=== PATIENT | female | born 1985 | race African-American/Black ===

== ENCOUNTER 2023-12-30 09:08 | Outpatient (AMB) | payer OTHER, SELFPAY ==
--- NOTE | 2023-12-30 09:13 | A.OFFPC_ITS ---
Vital Signs 12/30/23 09:16 12/30/23 10:02 Height 5 ft 4 in Weight 168 lb BMI 28.8 BP 124/84 Blood Pressure Location Rt brachial Position Sitting Pulse 108 H 78 Pulse Source Pulse Oximeter Auscultation Pulse Oximetry (%) 99 Oxygen Delivery Method Room Air Intake Visit Reasons: New pt- Requesting PE Intake Note: pt is here for New pt appt. Requests PE. Pap April 2022 in [place] Allergies No Known Allergies Allergy (Verified 12/30/23 09:39) Medication List - Last Reconciled 12/30/23 by AUREA Sanchez No Known Home Meds Tobacco use date assessed: 12/30/23 Dental Screening Dental Screen Date: 12/30/23 Did you have a dental visit in the last 12 months?: No Did you have a dental problem in the last 6 months where you did not have access to dental care?: No Was dental information given to patient?: No HPI HPI Comments History of Present Illness Details Patient is a 38-year-old female in today for a physical exam who I am meeting for the 1st time. She moved here from [place] does not have telecommunications sales representative, will refer. Patient is due for mammogram will order. Patient believes she is up-to-date with Tdap will send us information from her previous primary care provider. Will draw fasting labs. Patient has no significant past medical history. [facility] Surgical History (Updated 12/30/23 @ 09:24 by Gm Mcclain CMA) Previous section Social History Housing: Condominium Patient Tobacco Use Status: Never used Tobacco e-Cigarette/Vaping Use: Never Used service: No Current occupational status: unemployed Current occupational exposures/hazards: No Cognitive needs: No Hearing needs: No Vision needs: No Questionnaire PHQ-9 Over the last 2 weeks, how often have you been bothered by any of the following problems? 1. Little interest or pleasure in doing things: not at all 2. Feeling down, depressed, or hopeless: not at all 3. Trouble falling or staying asleep, or sleeping too much: not at all 4. Feeling tired or having little energy: not at all 5. Poor appetite or overeating: not at all 6. Feeling bad about yourself - or that you are a failure or have let yourself or your family down: not at all 7. Trouble concentrating on things, such as reading the newspaper or watching television: not at all 8. Moving or speaking so slowly that other people could have noticed. Or the opposite - being so fidgety or restless that you have been moving around a lot more than usual: not at all 9. Thoughts that you would be better off or of hurting yourself in some way: not at all Total score: 0 Depression Screening Interpretation: Negative Depression Screening Done: Yes 54081 - PHQ-9 Billing: Yes Source: Developed by Drs. Chago Hopson, Sol Manzanares, Sharath Shane and colleagues, with an educational renee from [employer]. Thrive Questionnaire Date Thrive assessed: 12/30/23 I am a: Patient What is your living situation today?: I have a steady place to live Within the past 12 months, did the food you bought not last and you didn't have the money to get more?: Never true Within the past 12 months, did you worry whether your food would run out before you got money to buy more?: Never true Do you have trouble paying for medicines?: No Do you have trouble getting transportation to medical appointments?: No Do you have trouble paying your heating and electricity bill?: No Do you have trouble taking care of your child, family member or friend?: No Do you have trouble with day-to-day activities such as bathing, preparing meals, shopping, managing finances, etc.?: No Are you currently unemployed and looking for a job?: No Are you interested in more education?: No Please select the resources that you would like help with: None Currently or been in a relationship where the following occur: no concerns repo rted THRIVE Score: 0 AUDIT C Alcohol Use Questionnaire (AUDIT-C) 1. How often do you have a drink containing alcohol?: Never Total Score: 0 FANNIE-7 AMB Questionnaire FANNIE-7 Date FANNIE - 7 assessed: 12/30/23 Feeling nervous, anxious, or on edge: 0 = Not at all Not being able to stop or control worryin = Not at all Worrying too much about different things: 0 = Not at all Trouble relaxin = Not at all Being so restless that it is hard to sit still: 0 = Not at all Becoming easily annoyed or irritable: 0 = Not at all Feeling afraid as if something awful might happen: 0 = Not at all Total FANNIE-7 score (0-4 normal; 5-9 mild; 10-14 moderate; 15-21 severe): 0 Source: Developed by Drs. Chago Hopson, Sol Manzanares, Sharath Shane and colleagues, with an educational renee from [employer]. FANNIE-7 Assessment Billing FANNIE-7 Assessment Tool: FANNIE-7 Assessment 64991 Review of Systems Const All systems reviewed & are unremarkable except as noted in HPI and below Physical exam (Primary Care) Vital Signs: Last Vital Signs Pulse 108 H 12/30/23 09:16 BP 124/84 12/30/23 09:16 Pulse Ox 99 12/30/23 09:16 Oxygen Delivery Method Room Air 12/30/23 09:16 Care Plan Goal for BP management: Patient blood pressure is controlled. During physical exam patient's pulse 78 peep per minute. BMI result Body Mass Index 28.8 Tobacco/Smoking Status: Tobacco use Status Tobacco use date assessed 12/30/23 12/30/23 09:26 Patient Tobacco Use Status Never used Tobacco 12/30/23 09:26 e-Cigarette/Vaping Use Never Used 12/30/23 09:26 PHQ-9: PHQ-9 Score PHQ-9: Total score 0 12/30/23 09:26 Depression Screening Interpretation: Negative Thrive Assessment: Date of Thrive Assessment Date Thrive assessed 12/30/23 12/30/23 09:26 Currently or been in a relationship where the following occur: no concerns reported Advance Care Planning discussion: Completed/Scanned Date of discussion: 12/30/23 Who was present: partner Forms completed: Health Care Proxy Time spent: 16-45 minutes Actual minutes spent: 16 Const Other: Appearance: Alert.? Oriented X3.? No acute distress.? Head: Normocephalic, atraumatic, no step-offs or deformities Eyes: Pupils equal, round and reactive to light.? ENT: Pharynx normal.?TM intact and pearly nascimento. Neck: Normal inspection.? Neck supple.? CVS: Normal heart rate and rhythm.? Pulses normal.? Respiratory: No respiratory distress.? Breath sounds normal.? Abdomen: Soft and nontender.? Skin: Skin warm and dry.? Normal skin color.? Normal skin turgor.? Extremities: No lower extremity edema. 5/5 strength to bilateral upper and lower extremities Back: No midline tenderness, no C-spine tenderness, full range of motion, no CVA tenderness bilaterally Neuro: Oriented X 3.? No motor deficit.? No sensory deficit. CN 2-12 intact Assessment and Plan Assessment & Plan (1) Physical exam: Comment: Patient is a 38-year-old female in today for a physical exam who I am meeting for the 1st time. She moved here from [place] does not have telecommunications sales representative, will refer. Patient is due for mammogram will order. Patient believes she is up-to-date with Tdap will send us information from her previous primary care provider. Will draw fasting labs. Patient has no significant past medical history. Code(s): Z00.00 - Encounter for general adult medical examination without abnormal findings Plan: draw labs Orders: Orders UA CC w/rflx Micro + Cult Today Z13.89 - Encounter for screening for other disorder Vitamin D 25-OH (D2 and D3) Today Z13.21 - Encounter for screening for nutritional disorder Vitamin B6 Today Z13.21 - Encounter for screening for nutritional disorder Vitamin B12 Today Z13.21 - Encounter for screening for nutritional disorder TSH reflex Free T4 Today Z13.29 - Encounter for screening for other suspected endocrine disorder Lipid Panel Today Z13.220 - Encounter for screening for lipoid disorders Complete Blood Count Auto Diff Today Z13.0 - Encounter for screening for diseases of the blood and blood-forming organs and certain disorders involving the immune mechanism Comprehensive Met. Panel Today Z91.89 - Other specified personal risk factors, not elsewhere classified MM tomosynthesis screening BI Today Z12.31 - Encounter for screening mammogram for malignant neoplasm of breast Referrals [facility] REPRESENTATIVE Referral Z12.4 - Encounter for screening for malignant neoplasm of cervix Coding Level of Care Code New Pt Prev Care 40-64y(15348) Diagnoses Physical exam Z00.00 Additional Codes FANNIE-7 Assessment Billing - FANNIE-7 Assessment Tool: FANNIE-7 Assessment 70905 ([id number]) Vital Signs *Quality* - Advance Care Planning discussion: Completed/Scanned ([id number]) Vital Signs *Quality* - Time spent: 16-45 minutes ([id number]) Time Spent (min) 26
[2023-12-30 09:16] VITALS: BP 124/84; PULSE 108; O2SAT 99; BMI 28.8
[2023-12-30 10:02] VITALS: PULSE 78
== END 2023-12-30 09:52 | disposition home or self-care (01) ==
PROVIDERS: Visit Provider Nurse Practitioner Primary Care
DX: Z00.00 Encounter for general adult medical examination without abnormal findings (principal)
CPT/HCPCS: 1123F; 99386; 99497

== ENCOUNTER 2023-12-30 09:56 | Outpatient (REF) | payer OTHER, SELFPAY ==
[2023-12-30 13:12] LABS: MANUAL DIFF FLAG NO
[2023-12-30 13:15] LABS: Appearance Urine Clear; Color Urine Yellow; Glucose Urine UA Negative (Negative); Leukocyte Esterase Urine Negative (Negative); Nitrite Urine Negative (Negative); PH 5.5 (5.0-9.0); Urine Blood Negative (Negative); Urine Ketones Negative (Negative); Urine Protein Negative (Neg-Trace)
[2023-12-30 13:27] LABS: Basophils Percent Auto 0.7 % (0-2); Eosinophils Absolute Auto 0.1 X10*3/uL (0.0-0.4); Hematocrit 37.4 % (37.0-47.0); Hemoglobin 12.5 g/dl (12.0-16.0); Imm Gran Abs Auto 0.01 X10*3/uL (0.00-0.03); Imm Gran Pct Auto 0.2 % (0.0-0.4); Lymphocytes Absolute Auto 2.2 X10*3/uL (1.2-4.9); Lymphocytes Percent Auto 48.9 % (20-40); Mean Corpuscular HGB Conc 33.4 g/dl (31.0-35.0); Mean Corpuscular Hemoglobin 31.1 pg (27.0-33.0); Mean Platelet Volume 12.4 fL (9.4-12.3); Monocytes Absolute Auto 0.4 X10*3/uL (0.1-1.2); Monocytes Percent Auto 8.9 % (2-11); Neutrophils Absolute Auto 1.7 x10*3/uL (2.0-8.3); Neutrophils Percent Auto 39.3 % (45-73); Platelet Count 250 X10*3/uL (160-400); Red Blood Count 4.02 X10*6/uL (4.20-5.50); Red Cell Distribution Width 13.2 % (11.0-16.0); White Blood Count 4.4 X10*3/uL (4.8-10.8)
[2023-12-30 13:56] LABS: Alanine Aminotransferase 10 U/L (0-31); Albumin Level 4.2 g/dL (3.5-5.0); Alkaline Phosphatase 41 U/L (39-117); Anion Gap 13 (12-20); Aspartate Amino Transferase 15 U/L (5-31); Bilirubin Total 0.3 mg/dL (0.0-1.0); Blood Urea Nitrogen 12 mg/dL (9-16); Calcium 9.5 mg/dL (8.4-10.2); Carbon Dioxide 28 mmol/L (22-29); Chloride 106 mmol/L (96-108); Cholesterol 237 mg/dL (<200); Estimated Glomerular Filt Rate > 60; Glucose Random 90 mg/dL (60-115); HDL Cholesterol 46 mg/dL (>40); LDL Cholesterol Calculated 166 mg/dL (<100); Sodium 143 mmol/L (135-145); Total Protein 7.4 g/dL (6.5-8.0); Triglycerides 128 mg/dL (<150)
[2023-12-30 14:06] LABS: Vitamin B12 556 pg/mL (200-900)
[2023-12-30 14:14] LABS: TSH reflex Free T4 2.72 uIU/mL (0.32-4.0)
[2024-01-03 17:49] LABS: Vitamin B6 10.3 ng/mL (2.1-21.7)
[2024-01-05 14:28] LABS: Vitamin D 25-OH, D2 <4 ng/mL; Vitamin D 25-OH, D3 12 ng/mL; Vitamin D 25-OH, Total 12 ng/mL (30-100)
== END 2023-12-30 09:57 | disposition home or self-care (01) ==
LOC: HO.HMGCLDS 09:56
PROVIDERS: PCP Nurse Practitioner Primary Care; Visit Provider Nurse Practitioner Primary Care
DX: Z13.0 Encounter for screening for diseases of the blood and blood-forming organs and certain disorders involving the immune mechanism (principal); Z13.89 Encounter for screening for other disorder; Z13.21 Encounter for screening for nutritional disorder; Z13.29 Encounter for screening for other suspected endocrine disorder; Z13.220 Encounter for screening for lipoid disorders; Z91.89 Other specified personal risk factors, not elsewhere classified
CPT/HCPCS: 36415; 80053; 80061; 81003; 82306; 82607; 84207; 84443; 85025

== ENCOUNTER 2024-01-07 11:34 | Outpatient (REF) | payer OTHER, SELFPAY ==
--- NOTE | ~2024-01-07 | MM_ITS ---
EXAMINATION: MM SCREENING DIGITAL BREAST TOMOSYNTHESIS, BILATERAL CLINICAL INFORMATION: Screening. Asymptomatic. COMPARISON: Mammography: This is a baseline mammogram. TECHNIQUE: Digital breast tomosynthesis is performed in both the craniocaudal and mediolateral oblique views along with computer-aided detection (CAD). Synthesized 2D images are generated from the tomosynthesis. FINDINGS: There are scattered areas of fibroglandular density (ACR BI-RADS breast composition Category b). There are no significant masses, abnormal calcifications, or other abnormalities. MM/MM tomosynthesis screening BI IMPRESSION: No mammographic evidence of malignancy. ASSESSMENT: BI-RADS BI-RADS 1 - Negative RECOMMENDATION: Routine annual mammography screening. 1 year F/U This examination should not preclude the clinical evaluation of a suspicious palpable abnormality. This patient's information was entered into a reminder system with a target due date for their next mammogram.
== END 2024-01-07 11:35 | disposition home or self-care (01) ==
LOC: HO.MAMMO 11:34
PROVIDERS: PCP Nurse Practitioner Primary Care; Visit Provider Nurse Practitioner Primary Care
DX: Z12.31 Encounter for screening mammogram for malignant neoplasm of breast (principal)
CPT/HCPCS: 77063; 77067

== ENCOUNTER → 2024-01-07 11:45 | Outpatient (BNV) | payer OTHER, SELFPAY | PROVIDERS: PCP Nurse Practitioner Primary Care; Visit Provider Radiology Diagnostic Radiology | DX: Z12.31 Encounter for screening mammogram for malignant neoplasm of breast (principal) | CPT/HCPCS: 77063; 77067 ==

== ENCOUNTER 2024-01-16 10:29 | Outpatient (AMB) | payer OTHER, SELFPAY ==
--- NOTE | 2024-01-16 10:31 | A.OFFPC_ITS ---
Vital Signs 01/16/24 10:32 Height 5 ft 4 in Weight 168 lb BMI 28.8 BP 120/82 Blood Pressure Location Lt brachial Position Sitting Pulse 89 Pulse Source Pulse Oximeter Pulse Oximetry (%) 98 Oxygen Delivery Method Room Air Intake Visit Reasons: Weak Intake Note: pt is here for weakness Allergies No Known Allergies Allergy (Verified 01/16/24 10:56) Medication List - Last Reconciled 01/16/24 by AUREA Sanchez cholecalciferol (vitamin D3) 50 mcg PO DAILY Tobacco use date assessed: 12/30/23 Dental Screening Dental Screen Date: 12/30/23 HPI HPI Comments History of Present Illness Details Patient is a 38-year-old female in today for follow-up with lab re carleen. Patient was found to have elevated levels of cholesterol, as well as vitamin D3 deficiency. Patient will be started on vitamin D3 2000 units per day and will have the values redrawn. She will also improve her diet and exercise will draw lipid panel in 3 months. Patient is up-to-date with mammogram, she is due for OBGYN, referral is out. [facility] Surgical History (Updated 12/30/23 @ 09:24 by Gm Mcclain [facility]) Previous section Social History Housing: Condominium Patient Tobacco Use Status: Never used Tobacco e-Cigarette/Vaping Use: Never Used service: No Current occupational status: unemployed Current occupational exposures/hazards: No Cognitive needs: No Hearing needs: No Vision needs: No Questionnaire Thrive Questionnaire Date Thrive assessed: 12/30/23 FANNIE-7 AMB Questionnaire FANNIE-7 Date FANNIE - 7 assessed: 12/30/23 Source: Developed by Drs. Chago Hopson, Sol Manzanares, Sharath Shane and colleagues, with an educational renee from [employer]. Review of Systems Const All systems reviewed & are unremarkable except as noted in HPI and below Physical exam (Primary Care) Vital Signs: Last Vital Signs Pulse 89 01/16/24 10:32 BP 120/82 01/16/24 10:32 Pulse Ox 98 01/16/24 10:32 Oxygen Delivery Method Room Air 01/16/24 10:32 BMI result Body Mass Index 28.8 Tobacco/Smoking Status: Tobacco use Status Tobacco use date assessed 12/30/23 01/16/24 10:35 Patient Tobacco Use Status Never used Tobacco 01/16/24 10:35 e-Cigarette/Vaping Use Never Used 01/16/24 10:35 Thrive Assessment: Date of Thrive Assessment Date Thrive assessed 12/30/23 01/16/24 10:35 Const Other: Appearance: Alert.? Oriented X3.? No acute distress.? Head: Normocephalic, atraumatic, no step-offs or deformities Eyes: Pupils equal, round and reactive to light.? Neck: Normal inspection.? Neck supple.? CVS: Normal heart rate and rhythm.? Pulses normal.? Respiratory: No respiratory distress.? Breath sounds normal.? Neuro: Oriented X 3.? No motor deficit.? No sensory deficit. CN 2-12 intact Results Reviewed Results Reviewed: Triglyceride 128 <150 mg/dL Desirable Triglyceride: less than 150 mg/dL Borderline High Triglyceride 150-199 mg/dL High Triglyceride: 200-499 mg/dL Very High Triglyceride: greater than or equal to 5OO mg/dL Cholesterol 237 H <200 mg/dL Desirable Cholesterol: less than 200 mg/dL Borderline High Cholesterol: 200-239 mg/dL High Cholesterol: greater than 239 mg/dL LDL Calculated 166 H <100 mg/dL Desirable LDL: less than 100 mg/dL Near Optimal/Above Optimal LDL: 110-129 mg/dL Borderline High LDL: 130-159 mg/dL High LDL: 160-189 mg/dL Very High LDL: greater than or equal to 190 mg/dL HDL 46 >40 mg/dL Desirable HDL: greater than 40 mg/dL Note: This HDL assay may give artificially low results in patients with liver disease. Alk Phos 41 39-117 U/L TSH 2.72 0.32-4.0 uIU/mL Assessment and Plan Assessment & Plan (1) Vitamin D deficiency: Comment: patient will start vitamin D3 2000 units per day for the next 3 months will redraw. Code(s): E55.9 - Vitamin D deficiency, unspecified (2) Hyperlipidemia: Comment: Velez patient will try to bring this number back to normal with improved diet and exercise. Will redrawn 3 months Code(s): E78.5 - Hyperlipidemia, unspecified Qualifiers: Hyperlipidemia type: unspecified Qualified Code(s): E78.5 - Hyperlipidemia, unspecified Orders: Orders Vitamin D 25-OH (D2 and D3) 3 Months Z13.21 - Encounter for screening for nutritional disorder Lipid Panel 3 Months Z13.220 - Encounter for screening for lipoid disorders Medications: New cholecalciferol (vitamin D3) 50 mcg PO DAILY 90 caps 0RF Coding Level of Care Code Est Pt Level 3 (91177) Diagnoses Vitamin D deficiency E55.9 Hyperlipidemia, unspecified hyperlipidemia type E78.5 Hyperlipidemia type: unspecified Time Spent (min) 21
[2024-01-16 10:32] VITALS: BP 120/82; PULSE 89; O2SAT 98; BMI 28.8
== END 2024-01-16 11:00 | disposition home or self-care (01) ==
PROVIDERS: PCP Nurse Practitioner Primary Care; Visit Provider Nurse Practitioner Primary Care
DX: E55.9 Vitamin D deficiency, unspecified (principal); E78.5 Hyperlipidemia, unspecified
CPT/HCPCS: 99213

== ENCOUNTER 2024-03-30 11:20 | Outpatient (AMB) | payer OTHER, SELFPAY ==
--- NOTE | 2024-03-30 11:45 | A.OFFVIS_ITS ---
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 She is not having any radial drill press operator concerns she believes she had her last Pap smear in 2021 and she believes she was told by her doctor that her next 1 would need to be 5 years from then. She does not have the records with her. Now that she is here she is open to having another Pap smear and any testing necessary. She uses fertility awareness for fertility control she counts the days when she is fertile before and after he period. And avoids sex when she is fertile. Her only concern is she gets very itchy after she shaves in her pubic area and she had a cream that was given to her by her doctor in [place] but she does not know the name of it but it did help. She would love some more that cream. She moved here last year she lives for 10 years in [place] she has from [place] she has lots of family members in [place] her 12-year-old likes it here but her 6-year-old [facility] she is not working currently because there was so much to just living in a new place and taking care of the children. Her is in the and sometimes he gets deployed. COUNT INCLUDES THE [facility] Surgical History Previous section Social History Housing: Condominium Patient Tobacco Use Status: Never used Tobacco e-Cigarette/Vaping Use: Never Used service: No Current occupational status: unemployed Current occupational exposures/hazards: No Cognitive needs: No Hearing needs: No Vision needs: No Female Reproductive History Menstrual Age of Menarche: 13 Duration of menses: 3-5 days Date of last menstrual period: 02/26/24 control method: none Total pregnancies: 2 Full term: 2 Date of last pap smear: 04/25/22 (negative,per patient) History of abnormal pap smear: No Date of Mammogram: 01/07/24 (negative) Physical Exam Vital Signs: Last Vital Signs BP 136/70 03/30/24 11:47 BMI result Body Mass Index 29.0 Const General: healthy appearing, comfortable, no acute distress, well developed and alert Nutritional Appearance: average body habitus Orientation/consciousness: patient oriented x3 Limitations: no limitations HEENT Head: Yes normocephalic Neck Neck: Yes normal visual inspection Chest Chest palpation & inspection: normal inspection of the chest Breast/axilla inspection: normal inspection of the breasts and normal inspection of the axillae Breast/axilla palpation: normal palpation of the breasts and normal palpation of the axillae Resp Effort & Inspection: normal respiratory effort GI Inspection: Yes normal to inspection, No Abdominal wall edema and No distended Palpation (GI): Soft to palpation and nontender Other: External exam within normal limits no redness rash or lesions or abnormal discharge noted. Patient does shave.. Vagina is pink and moist cervix is pink multiparous healthy scant white luteal phase discharge noted. Cervix is long close thick mobile nontender uterus midposition mobile nontender good tone with Kegel. General: Yes bladder normal to palpation External Female Exam: normal external appearance and normal appearance of the urethra Speculum Exam - Vagina: normal appearance of the vagina, normal palpation and normal vaginal discharge Speculum Exam - Cervix: normal appearance of the cervix, normal palpation and nontender Bimanual exam- vagina & uterus: normal bimanual exam, normal palpation, uterine size normal, bladder normal to palpation, consistency normal, normal palpation, uterine mobility normal, uterine shape normal, No Cervical tenderness present, non-tender and no cervical motion tenderness Bimanual Exam- Adnexa, other: normal adnexae, no masses, normal and No adnexal tenderness Neuro General: patient oriented x3 Assessment & Plan Assessment & Plan (1) Well woman exam with routine gynecological exam: Code(s): Z01.419 - Encounter for gynecological examination (general) (routine) without abnormal findings Category: Medical (2) Cervical cancer screening: Comment: Cites no history of abnormals. Pap smear done as no records available. Code(s): Z12.4 - Encounter for screening for malignant neoplasm of cervix Category: Medical (3) Encounter for screening examination for sexually transmitted disease: Code(s): Z11.3 - Encounter for screening for infections with a predominantly sexual mode of transmission Category: Medical (4) Breast cancer screening: Comment: Patient says she just had her mammogram. Code(s): Z12.39 - Encounter for other screening for malignant neoplasm of breast Category: Medical (5) Uses fertility awareness method as primary control method: Code(s): Z78.9 - Other specified health status Category: Social Hx (6) Vaginal itching: Comment: Only when she shaves but she intends to shave, Rx for Monistat 7 provided for symptom relief. Code(s): N89.8 - Other specified noninflammatory disorders of vagina Category: Medical Plan -----Discussed in this visit the following: healthy balanced diet, regular and consistent exercise, getting recommended health screens, doing the best she can for her particular health concerns, kegel exercises, pap smear screening and followup recommendations, mammography screening and SBE, normal changes in cycles in her life stage--- . Prescription sent for Monistat 7 to as it may provide some soothing relief even though I do not see evidence of in yeast infection. It certainly will not harm her to use it. And there would be few precautions with that versus and topical steroid. If she finds the prescription that was given to her in [place] she may want to bring the 2 to her primary care provider and see if he may be able to provide a refill Discussed the challenges of relocating periodically with the life, and dealing with deployments etc., and distance from family and the challenges that that can present raising children. RTC 1 year. Medications: New miconazole nitrate 2% (Miconazole-7) Use when needed for suspected yeast infection/ vaginal itching 1 appful vaginal BEDTIME 7 days 45 grams 1RF Coding Level of Care Code New Pt Prev Care 40-64y(91758) Diagnoses Well woman exam with routine gynecological exam Z01.419 Cervical cancer screening Z12.4 Encounter for screening examination for sexually transmitted disease Z11.3 Breast cancer screening Z12.39 Uses fertility awareness method as primary control method Z78.9 Vaginal itching N89.8
[2024-03-30 11:47] VITALS: BP 136/70; BMI 29.0
== END 2024-03-30 12:35 | disposition home or self-care (01) ==
PROVIDERS: PCP Nurse Practitioner Primary Care; Visit Provider Advanced Practice Midwife
DX: Z01.419 Encounter for gynecological examination (general) (routine) without abnormal findings (principal); Z12.4 Encounter for screening for malignant neoplasm of cervix; Z11.3 Encounter for screening for infections with a predominantly sexual mode of transmission; Z12.39 Encounter for other screening for malignant neoplasm of breast; Z78.9 Other specified health status; N89.8 Other specified noninflammatory disorders of vagina
CPT/HCPCS: 99386

== ENCOUNTER 2024-03-30 11:20 | Outpatient (REF) | payer OTHER, SELFPAY ==
[2024-03-31 12:27] LABS: CT PCR NOT DETECTED (Not Detect.); NG PCR NOT DETECTED (Not Detect.)
[2024-03-31 13:09] LABS: Bacterial Vaginosis PCR NEGATIVE (Negative); Candida Group PCR NOT DETECTED (Not Detect); Candida glab krusei PCR NOT DETECTED (Not Detect); Trichomonas vaginalis PCR NOT DETECTED (Not Detect)
[2024-04-02 07:37] LABS: HPV mRNA E6/E7 Not Detected (Not Detected)
== END 2024-03-30 11:21 | disposition home or self-care (01) ==
LOC: HO.LAB 11:20
PROVIDERS: PCP Nurse Practitioner Primary Care; Visit Provider Advanced Practice Midwife
DX: Z01.419 Encounter for gynecological examination (general) (routine) without abnormal findings (principal); N89.8 Other specified noninflammatory disorders of vagina; Z20.2 Contact with and (suspected) exposure to infections with a predominantly sexual mode of transmission
CPT/HCPCS: 0352U; 36415; 87491; 87591; 87624; 88175

== ENCOUNTER 2024-04-22 10:04 | Outpatient (REF) | payer OTHER, SELFPAY ==
[2024-04-22 14:04] LABS: Cholesterol 203 mg/dL (<200); HDL Cholesterol 55 mg/dL (>40); LDL Cholesterol Calculated 137 mg/dL (<100); Triglycerides 59 mg/dL (<150)
[2024-04-22 14:21] LABS: Vitamin D 25-OH Total 50.8 ng/mL (>30)
[2024-04-27 15:43] LABS: Vitamin D 25-OH, D2 <4 ng/mL; Vitamin D 25-OH, D3 32 ng/mL; Vitamin D 25-OH, Total 32 ng/mL (30-100)
== END 2024-04-22 10:05 | disposition home or self-care (01) ==
LOC: HO.HMGCLDS 10:04
PROVIDERS: Nurse Practitioner Primary Care; PCP Internal Medicine; Visit Provider Internal Medicine
DX: Z13.21 Encounter for screening for nutritional disorder (principal); Z13.220 Encounter for screening for lipoid disorders; Z13.6 Encounter for screening for cardiovascular disorders; E55.9 Vitamin D deficiency, unspecified
CPT/HCPCS: 36415; 80061; 82306

== ENCOUNTER 2024-08-17 11:26 | Outpatient (AMB) | payer OTHER, SELFPAY ==
[2024-08-17 12:10] VITALS: BP 118/80; PULSE 60; RESP 14; TEMP 37; O2SAT 99; BMI 28.5
--- NOTE | 2024-08-17 12:10 | MHC.PC.OV ---
Vital Signs 08/17/24 12:10 Height 5 ft 4 in Weight 166 lb BMI 28.5 BP 118/80 Blood Pressure Location Lt brachial Position Sitting Respiration 14 Pulse 60 Pulse Source Pulse Oximeter Temp 98.6 F Temp Source Oral Pulse Oximetry (%) 99 Oxygen Delivery Method Room Air Intake Visit Reasons: Transfer from [facility] Intake Note: Pt is here today transfer from [facility]: Pt request PE: Last mammogram 01/07/24, papsmear 03/30/24 Allergies No Known Allergies Allergy (Verified 08/17/24 12:17) Medication List - Last Reconciled 08/17/24 by Rupinder Shankar MD cholecalciferol (vitamin D3) 50 mcg PO DAILY Tobacco use date assessed: 08/17/24 Dental Screening Dental Screen Date: 08/17/24 Did you have a dental visit in the last 12 months?: No Did you have a dental problem in the last 6 months where you did not have access to dental care?: No Was dental information given to patient?: No HPI Transfer from [facility] HPI Details 39-year-old female, here today to establish care with a new PCP. She has dyslipidemia currently following a low-cholesterol diet but no regular exercise. Last fasting labs done a year ago showed improvement in her LDL cholesterol levels She goes to [facility] and is up-to-date with her cervical cancer screening, last done a year ago with negative findings. Up-to-date with her screening mammogram, also done a year ago with benign findings [facility] Medical History (Updated 08/17/24 @ 12:34 by Rupinder Shankar MD) Leukopenia Hyperlipidemia History of vitamin D deficiency Surgical History Previous section Social History Housing: Condominium Patient Tobacco Use Status: Never used Tobacco e-Cigarette/Vaping Use: Never Used service: No Current occupational status: unemployed Current occupational exposures/hazards: No Cognitive needs: No Hearing needs: No Vision needs: No Female Reproductive History Menstrual Age of Menarche: 13 Questionnaire PHQ-9 Over the last 2 weeks, how often have you been bothered by any of the following problems? 1. Little interest or pleasure in doing things: not at all 2. Feeling down, depressed, or hopeless: not at all 3. Trouble falling or staying asleep, or sleeping too much: not at all 4. Feeling tired or having little energy: not at all 5. Poor appetite or overeating: not at all 6. Feeling bad about yourself - or that you are a failure or have let yourself or your family down: not at all 7. Trouble concentrating on things, such as reading the newspaper or watching television: not at all 8. Moving or speaking so slowly that other people could have noticed. Or the opposite - being so fidgety or restless that you have been moving around a lot more than usual: not at all 9. Thoughts that you would be better off or of hurting yourself in some way: not at all Total score: 0 Depression Screening Interpretation: Negative Depression Screening Done: Yes 20565 - PHQ-9 Billing: Yes Source: Developed by Drs. Chago Hopson, Sol Manzanares, Sharath Shane and colleagues, with an educational renee from [employer]. Thrive Questionnaire Date Thrive assessed: 08/17/24 I am a: Patient What is your living situation today?: I choose not to answer this question Within the past 12 months, did the food you bought not last and you didn't have the money to get more?: I choose not to answer this question Within the past 12 months, did you worry whether your food would run out before you got money to buy more?: I choose not to answer this question Do you have trouble paying for medicines?: I choose not to answer this question Do you have trouble getting transportation to medical appointments?: No Do you have trouble paying your heating and electricity bill?: I choose not to answer this question Do you have trouble taking care of your child, family member or friend?: I choose not to answer this question Do you have trouble with day-to-day activities such as bathing, preparing meals, shopping, managing finances, etc.?: I choose not to answer this question Are you currently unemployed and looking for a job?: I choose not to answer this question Are you interested in more education?: I choose not to answer this question Please select the resources that you would like help with: None Currently or been in a relationship where the following occur: I choose not to answer THRIVE Score: 0 AUDIT C Alcohol Use Questionnaire (AUDIT-C) 1. How often do you have a drink containing alcohol?: Never Total Score: 0 FANNIE-7 AMB Questionnaire FANNIE-7 Date FANNIE - 7 assessed: 08/17/24 Feeling nervous, anxious, or on edge: 0 = Not at all Not being able to stop or control worryin = Not at all Worrying too much about different things: 0 = Not at all Trouble relaxin = Not at all Being so restless that it is hard to sit still: 0 = Not at all Becoming easily annoyed or irritable: 0 = Not at all Feeling afraid as if something awful might happen: 0 = Not at all Total FANNIE-7 score (0-4 normal; 5-9 mild; 10-14 moderate; 15-21 severe): 0 Source: Developed by Drs. Chago Hopson, Sol Manzanares, Sharath Shane and colleagues, with an educational renee from [employer]. FANNIE-7 Assessment Billing FANNIE-7 Assessment Tool: FANNIE-7 Assessment 01997 Review of Systems Const Denies body aches, Denies fatigue, Denies fever(s), Denies headache(s) and Denies weakness Eyes Denies change in vision ENT Denies dizziness, Denies headache(s) and Denies nasal congestion Card Denies chest pain, Denies lightheadedness, Denies palpitations and Denies dyspnea Resp Denies chest congestion, Denies cough, Denies dyspnea and Denies wheezing GI Denies abdominal pain, Denies change in bowel habits and Denies heartburn Denies hematuria, Denies urinary frequency, Denies dysuria and Denies urinary urgency Musc Reports no additional complaints Skin/Breast Denies breast pain, Denies breast mass, Denies lesions and Denies rash Neuro Denies dizziness, Denies headache(s) and Denies weakness Psych Reports no additional complaints Endo Denies fatigue, Denies polydipsia, Denies polyuria and Denies palpitations Robert/Lymph Denies easy bruising Aller/Immun Denies seasonal rhinorrhea and Denies wheezing Physical exam (Primary Care) Vital Signs: Last Vital Signs Temp 98.6 F 08/17/24 12:10 Pulse 60 08/17/24 12:10 Resp 14 08/17/24 12:10 BP 118/80 08/17/24 12:10 Pulse Ox 99 08/17/24 12:10 Oxygen Delivery Method Room Air 08/17/24 12:10 BMI result Body Mass Index 28.5 Tobacco/Smoking Status: Tobacco use Status Tobacco use date assessed 08/17/24 08/17/24 12:18 Patient Tobacco Use Status Never used Tobacco 08/17/24 12:18 e-Cigarette/Vaping Use Never Used 08/17/24 12:18 PHQ-9: PHQ-9 Score PHQ-9: Total score 0 08/17/24 12:18 Depression Screening Interpretation: Negative Thrive Assessment: Date of Thrive Assessment Date Thrive assessed 08/17/24 08/17/24 12:18 Currently or been in a relationship where the following occur: I choose not to answer Advance Care Planning discussion: On file, no changes Date of discussion: 08/17/24 Who was present: Patient and Forms completed: Health Care Proxy Time spent: 1-15 minutes, on File Actual minutes spent: 1 Const General: no acute distress and alert Orientation/consciousness: patient oriented x3 HENMT Head: Yes normocephalic Ears: external ears normal, TM's normal bilaterally and EAC's normal General nose exam: Normal external nose present and No nasal discharge present Face and sinus: Yes face symmetric Mouth: Normal oral and palatal mucosa present and moist mucous membranes Eyes General: appearance normal, both eyes and all related structures Eyelids: Yes eyelids normal Conjunctivae: conjunctivae normal Sclerae: sclerae normal Pupils: Equal, round and reactive pupils present EOM: EOMs intact bilaterally Neck Neck: Yes full ROM, Yes no lymphadenopathy and Yes supple Thyroid: Thyroid normal Resp Effort & Inspection: normal respiratory effort and able to speak in complete sentences Auscultation: clear to auscultation bilaterally Cardio Rate: regular rate Rhythm: regular rhythm Heart sounds: S1 normal heart sound present and S2 normal heart sound present GI Palpation (GI): Soft to palpation, nontender, no guarding and no masses Auscultation: normal bowel sounds General: Yes no CVA tenderness Back/Spine/Pelvis Back: no CVA tenderness and No back tenderness Skin General skin exam: no rashes or lesions noted Neuro General: patient oriented x3, gait normal, moves all extremities, Normal light touch and pain sensation, no focal motor deficits and CN's II-XI intact bilaterally Cranial nerves: Yes Equal, round and reactive pupils present Cognition (Neuro): normal cognition Gait exam (Neuro): Normal gait present Motor exam (neuro): 5/5 motor strength present throughout Extrem General: Yes normal to inspection, Yes full ROM, Yes no joint enlargement, Yes no pedal edema and Yes normal gait Psych Appearance: grossly normal and well kempt Mental Status: mental status grossly normal Speech and movement: Normal speech and movement present Affect: normal affect Attitude: cooperative Thought process: Normal thought process present Thought content: Normal thought content present Coding Level of Care Code Est Pt Prev Care 40-64y(63134) Diagnoses Hyperlipidemia, unspecified hyperlipidemia type E78.5 Hyperlipidemia type: unspecified History of vitamin D deficiency Z86.39 Annual visit for general adult medical examination with abnormal findings Z. Leukopenia D72.819 Strabismus H50.9 Additional Codes FANNIE-7 Assessment Billing - FANNIE-7 Assessment Tool: FANNIE-7 Assessment 86501 ([id number]) PHQ-9 - 89185 - PHQ-9 Billing: Yes ([id number]) Vital Signs *Quality* - Advance Care Planning discussion: On file, no changes ([id number]) Vital Signs *Quality* - Time spent: 1-15 minutes, on File ([id number]) Assessment & Plan Assessment & Plan (1) Hyperlipidemia: Comment: Velez patient will try to bring this number back to normal with improved diet and exercise. Will redrawn 3 months Code(s): E78.5 - Hyperlipidemia, unspecified Category: Medical Qualifiers: Hyperlipidemia type: unspecified Qualified Code(s): E78.5 - Hyperlipidemia, unspecified (2) History of vitamin D deficiency: Code(s): Z86.39 - Personal history of other endocrine, nutritional and metabolic disease (3) Annual visit for general adult medical examination with abnormal findings: Code(s): Z00.01 - Encounter for general adult medical examination with abnormal findings (4) Leukopenia: Code(s): D72.819 - Decreased white blood cell count, unspecified Category: Medical (5) Strabismus: Code(s): H50.9 - Unspecified strabismus Plan Will check appropriate labs. Recommended dental visit every 6 months and regular eye exams, at least every 2 years. Take adequate calcium in diet and vitamin-D 3 at 2000 IU per cap once a day, in addition to weight-bearing exercises to help maintain good muscle tone and weight control. Instructed to do self-breast exam, and continue to get yearly mammogram. Up-to-date with her cervical cancer screening, sees [facility].. Reminded to get her yearly flu vaccine and COVID booster and as well as Tdap. Patient declined getting flu vaccine at present time Orders: Orders Vitamin D 25-OH Total 08/17/24 D72.819 - Decreased white blood cell count, unspecified, E78.5 - Hyperlipidemia, unspecified, Z00.01 - Encounter for general adult medical examination with abnormal findings, Z13.1 - Encounter for screening for diabetes mellitus, Z86.39 - Personal history of other endocrine, nutritional and metabolic disease Aspartate Amino Transferase 08/17/24 D72.819 - Decreased white blood cell count, unspecified, E78.5 - Hyperlipidemia, unspecified, Z00.01 - Encounter for general adult medical examination with abnormal findings, Z13.1 - Encounter for screening for diabetes mellitus, Z86.39 - Personal history of other endocrine, nutritional and metabolic disease Alanine Aminotransferase 08/17/24 D72.819 - Decreased white blood cell count, unspecified, E78.5 - Hyperlipidemia, unspecified, Z00.01 - Encounter for general adult medical examination with abnormal findings, Z13.1 - Encounter for screening for diabetes mellitus, Z86.39 - Personal history of other endocrine, nutritional and metabolic disease Lipid Panel 08/17/24 D72.819 - Decreased white blood cell count, unspecified, E78.5 - Hyperlipidemia, unspecified, Z00.01 - Encounter for general adult medical examination with abnormal findings, Z13.1 - Encounter for screening for diabetes mellitus, Z86.39 - Personal history of other endocrine, nutritional and metabolic disease Complete Blood Count Auto Diff 08/17/24 D72.819 - Decreased white blood cell count, unspecified, E78.5 - Hyperlipidemia, unspecified, Z00.01 - Encounter for general adult medical examination with abnormal findings, Z13.1 - Encounter for screening for diabetes mellitus, Z86.39 - Personal history of other endocrine, nutritional and metabolic disease Basic Metabolic Panel Fasting 08/17/24 D72.819 - Decreased white blood cell count, unspecified, E78.5 - Hyperlipidemia, unspecified, Z00.01 - Encounter for general adult medical examination with abnormal findings, Z13.1 - Encounter for screening for diabetes mellitus, Z86.39 - Personal history of other endocrine, nutritional and metabolic disease
--- OUTSIDE RECORDS SUMMARY | 2024-08-17 13:03 | XMS_ITS | Clinical Summary ---
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 Name Role Phone Physician, No Pcp Primary Care Provider Unavaila ble Allergies No known active allergies Medications No known medications Social History Tobacco Use Types Packs/Day Years Used Date Smoking Tobacco: Never Smokeless Tobacco: Never Tobacco Cessation:Counseling Given: Not Answered Alcohol Use Standard Drinks/Week Comments Never 0 (1 standard drink = 0.6 oz pur e alcohol) Comments No Sex and Gender Information Value Date Recorded Sex Assigned at Not on file Legal Sex Female 3:55 PM EDT Gender Identity Not on file Sexual Orientation Not on file Obstetrics History Last Filed Vital Signs Vital Sign Reading Time Taken Comments Blood Pressure 120/82 11/04/2022 9:43 AM EDT Pulse 89 11/04/2022 9:43 AM EDT Temperature 36.7 ??C (98.1 ??F) 11/04/2022 9:43 AM ED T Respiratory Rate 17 11/04/2022 9:43 AM EDT Oxygen Saturation 98% 11/04/2022 9:43 AM EDT Inhaled Oxygen Concentration - - Weight 74.8 kg (165 lb) 11/04/2022 9:43 AM EDT Height 165.1 cm (5' 5 ) 11/04/2022 9:43 AM EDT Body Mass Index 27.46 11/04/2022 9:43 AM EDT Plan of Treatment Health Maintenance Due Date Last Done Comments Breast Cancer Screening 1983 Hepatitis B Vaccines (1 of 3 - 19+ 3-dose series) 2002 DTaP,Tdap,and Td Vaccines (2 - Td or Tdap) 04/17/2017 03/20/2017 Depression Screening 11/04/2022 HIV Screening 11/04/2022 Social Influencers of Health Screening 11/04/2022 COVID-19 Vaccine (3 - 2023-2 5 season) 2024 03/09/2021, 02/16/2021 Influenza Vaccine (#1) 2024 , 04/18/2017, 09/23/2011 Cholesterol Screening (Lipid Panel) 03/14/2027 03/14/2022 Cervical Cancer Screening: HPV 04/16/2027 04/16/2022 Hepatitis C Screening Completed 03/14/2022 HIB Vaccines Aged Out No longer eligi ble based on patient's age to complete this topic HPV Vaccines Aged Out No longer eligi ble based on patient's age to complete this topic Hepatitis A Vaccines Aged Out No long er eligible based on patient's age to complete this topic IPV Vaccines Aged Out No longer eligi ble based on patient's age to complete this topic MMR Vaccines Aged Out No longer eligi ble based on patient's age to complete this topic Meningococcal ACWY Vaccine Aged Out N o longer eligible based on patient's age to complete this topic Meningococcal B Vacine Aged Out No lo nger eligible based on patient's age to complete this topic Pneumococcal Vaccine: Pediatrics (0 to 5 Years) and At-Risk Patients (6 to 64 Years) Aged Out No longer eligible b ased on patient's age to complete this topic RSV Immunization Patients Under 20 months Aged Out No longer eligible b ased on patient's age to complete this topic Varicella Vaccines Aged Out No longer eligible based on patient's age to complete this topic Insurance [place] [employer] Care Teams Coal Pulverizer Operator Relationship Specialty Start Date End Date Physician, No Pcp PCP - General 11/04/22
== END 2024-08-17 13:48 | disposition home or self-care (01) ==
PROVIDERS: PCP Nurse Practitioner Primary Care; Visit Provider Internal Medicine
DX: Z00.00 Encounter for general adult medical examination without abnormal findings (principal); E78.5 Hyperlipidemia, unspecified; H50.9 Unspecified strabismus; D72.819 Decreased white blood cell count, unspecified; Z86.39 Personal history of other endocrine, nutritional and metabolic disease

== ENCOUNTER 2024-08-17 11:26 | Outpatient (REF) | payer OTHER, SELFPAY ==
--- OUTSIDE RECORDS SUMMARY | 2024-08-17 13:45 | XMS_ITS | Clinical Summary ---
Author Organization [facility] Address [address] [place] [address] Phone Care Team Providers Care Local Announcer Name Role Phone Physician, No Pcp Primary [...] patient's age to complete this topic Insurance [place] [address] Care Teams Local Announcer Relationship Specialty Start Date End Date Physician, No Pcp PCP - General 11/04/22
[2024-08-17 16:35] LABS: Basophils Percent Auto 0.5 % (0-2); Eosinophils Percent Auto 0.7 % (0-4); Hematocrit 39.6 % (37.0-47.0); Hemoglobin 12.9 g/dl (12.0-16.0); Lymphocytes Absolute Auto 2.5 X10*3/uL (1.2-4.9); Lymphocytes Percent Auto 60.2 % (20-40); MANUAL DIFF FLAG SCAN; Mean Corpuscular HGB Conc 32.6 g/dl (31.0-35.0); Mean Corpuscular Hemoglobin 30.5 pg (27.0-33.0); Mean Corpuscular Volume 93.6 fL (80.0-98.0); Mean Platelet Volume 12.1 fL (9.4-12.3); Monocytes Absolute Auto 0.3 X10*3/uL (0.1-1.2); Neutrophils Absolute Auto 1.3 x10*3/uL (2.0-8.3); Neutrophils Percent Auto 30.6 % (45-73); Platelet Count 245 X10*3/uL (160-400); Red Blood Count 4.23 X10*6/uL (4.20-5.50); Red Cell Distribution Width 13.5 % (11.0-16.0); SCAN SMEAR FLAG 1; White Blood Count 4.2 X10*3/uL (4.8-10.8)
[2024-08-17 16:55] LABS: Alanine Aminotransferase 9 U/L (0-31); Anion Gap 10 (12-20); Aspartate Amino Transferase 27 U/L (5-31); Blood Urea Nitrogen 13 mg/dL (9-16); Calcium 8.8 mg/dL (8.4-10.2); Carbon Dioxide 29 mmol/L (22-29); Chloride 105 mmol/L (96-108); Cholesterol 205 mg/dL (<200); Estimated Glomerular Filt Rate > 60; Glucose Fasting 81 mg/dL (60-99); HDL Cholesterol 59 mg/dL (>40); LDL Cholesterol Calculated 131 mg/dL (<100); Potassium 3.8 mmol/L (3.3-5.1); Sodium 140 mmol/L (135-145); Triglycerides 76 mg/dL (<150)
[2024-08-17 17:10] LABS: Vitamin D 25-OH Total 47.1 ng/mL (>30)
[2024-08-17 18:51] LABS: SLIDE REVIEW VERIFIED
== END 2024-08-17 11:27 | disposition home or self-care (01) ==
LOC: HO.HMGCLDS 11:26
PROVIDERS: PCP Internal Medicine; Visit Provider Internal Medicine
DX: Z00.01 Encounter for general adult medical examination with abnormal findings (principal); D72.819 Decreased white blood cell count, unspecified; Z86.39 Personal history of other endocrine, nutritional and metabolic disease; E78.5 Hyperlipidemia, unspecified; H50.9 Unspecified strabismus
CPT/HCPCS: 36415; 80048; 80061; 82306; 84450; 84460; 85025; 96127